=== PATIENT | male | born 1940 | race Caucasian/White ===

== ENCOUNTER 2017-04-06 13:43 | Emergency (ER) | payer OTHER ==
[~2017-04-06] VITALS: Ht 190.5 cm; Wt 113.0 kg
[~2017-04-06 13:43] MED LIST: ADULT LOW DOSE81 M1 PO; LOPRESSOR25 MG; NEXIUM40 MG PO; PLENDIL5 M1 PO; SYNTHROID25 MCG; VYTORIN 10/11 TABLET PO
[2017-04-06 14:42] VITALS: BP 106/62
== END 2017-04-06 14:42 | disposition home or self-care (01) ==
LOC: EDBD 13:43 → EME 13:43
DX: Z08 Encounter for follow-up examination after completed treatment for malignant neoplasm (principal); Z85.828 Personal history of other malignant neoplasm of skin
CPT/HCPCS: 99281; 99282

== ENCOUNTER 2017-10-14 09:48 | Emergency (ER) | payer OTHER ==
[~2017-10-14] VITALS: Ht 190.5 cm; Wt 110.2 kg
[~2017-10-14 09:48] MED LIST changes: +COLACE100 MG PO
[2017-10-14 10:42] LABS: HEMATOCRIT 45.2 % (38.0-50.0); MCH 30.5 PG (29.0-34.0); MCHC 33.6 G/DL (30.0-36.0); MCV 90.8 FL (86-99); MEAN PLAT.VOLUME 9.3 uM^3 (9.0-12.4); PLATELET COUNT 199 K/uL (156-360); RBC DIS.WIDTH-CV 12.6 % (11.8-14.6); RBC DIS.WIDTH-SD 41.2 % (39-53); RED BLOOD COUNT 4.98 M/uL (4.00-5.50); WHITE BLOOD COUNT 4.3 K/uL (4.1-10.2)
[2017-10-14 10:55] LABS: CHLORIDE 101 mEq/L (99-109); POTASSIUM 4.2 mEq/L (3.7-5.4); SODIUM 138 mEq/L (136-147)
[2017-10-14 10:57] LABS: GLUCOSE 110 mg/dL (70-99)
[2017-10-14 10:58] LABS: ANION GAP 11 MEQ/L (2-14)
[2017-10-14 11:01] LABS: GFR ESTIMATE (CALCULATED) > 59 mL/min/
[2017-10-14 11:02] LABS: UREA NITROGEN (BUN) 13 mg/dL (9-23)
[2017-10-14 11:05] LABS: TROP-I INTERPRETATION NEGATIVE; TROPONIN-I < 0.01 ng/mL (0.0-0.30)
[2017-10-14 13:29] LABS: TROP-I INTERPRETATION NEGATIVE; TROPONIN-I < 0.01 ng/mL (0.0-0.30)
[2017-10-14] MEDS ORDERED: MOTRIN800 MG PO (14:03)
[2017-10-14 14:17] VITALS: BP 145/74
== END 2017-10-14 14:17 | disposition home or self-care (01) ==
LOC: EME 09:48
PROVIDERS: Emergency Medicine
DX: R07.89 Other chest pain (principal); I10 Essential (primary) hypertension; E78.5 Hyperlipidemia, unspecified; E03.9 Hypothyroidism, unspecified; Z90.49 Acquired absence of other specified parts of digestive tract
CPT/HCPCS: 71020; 80048; 84484; 85027; 85379; 93005; 99281; 99284